=== PATIENT | male | born 1965 | race African-American/Black ===

== ENCOUNTER 2020-08-07 17:10 | Inpatient (IN) | payer BC, OTHER ==
[2020-08-07 18:38] VITALS: BMI 16.2
[2020-08-07] MEDS ORDERED: IBUPROFEN 400 MG TABLET (FP) PO PRN (21:57)
[2020-08-07] MEDS ORDERED: NICOTINE POLACRILEX 2 MG GUM BC PRN (21:57)
[2020-08-07] MEDS ORDERED: ACETAMINOPHEN 325 MG TABLET (FP) PO PRN (21:57)
[2020-08-07] MEDS ORDERED: hydrOXYzine PAMOATE 25 MG CAPSULE (FP) PO PRN (21:57)
[2020-08-07] MEDS ORDERED: MAGNESIUM CITRATE 300 ML BOTTLE PO PRN (21:57)
[2020-08-07] MEDS ORDERED: MAG HYDROX/AL HYDROX/SIMETH 30 ML UNIT-DOSE CUP PO PRN (21:57)
[2020-08-07] MEDS ORDERED: LOPERAMIDE HCL 2 MG CAPSULE PO PRN (21:57)
[2020-08-07] MEDS ORDERED: P-EPHED 60MG/TRIPROLIDI 2.5MG TABLET PO PRN (21:57)
[2020-08-07] MEDS ORDERED: guaiFENesin 200 MG/10 ML 10 ML UNIT-DOSE CUPS PO PRN (21:57)
[2020-08-07] MEDS ORDERED: MAGNESIUM HYDROX 2400MG/30ML ORAL SUSPENSION 30 ML CUP PO PRN (21:57)
[2020-08-07] MEDS: THIAMINE HCL 100 MG TABLET (FP) PO SCH (23:00)
[2020-08-07] MEDS: MELATONIN 5 MG TABLETS PO SCH (23:00)
[2020-08-08] MEDS: PRENATAL VITAMINS W/ FOLIC ACID TABLET (FP) PO SCH (10:33)
[2020-08-08 11:31] LABS: HEMATOCRIT 35.8 % (35.4-49); HEMOGLOBIN 11.8 GM/dL (11.7-16.9); MCH 30.1 pg (25.7-33.7); MCHC 32.9 g/dl (32.0-35.9); MEAN CELL VOLUME 91.5 fl (80-96); MEAN PLT VOLUME 8.2 fl (7.5-11.1); PLATELET COUNT 260 K/MM3 (134-434); RBC 3.91 M/mm3 (4.00-5.60); RDW 13.1 % (11.9-15.9); WHITE BLOOD COUNT 5.7 K/mm3 (4.0-10.0)
[2020-08-08 11:44] LABS: CALCIUM 9.2 mg/dL (8.5-10.1)
[2020-08-08 11:45] LABS: ALBUMIN 3.5 g/dl (3.4-5.0)
[2020-08-08 11:47] LABS: CREATININE 0.9 mg/dL (0.55-1.3)
[2020-08-08 11:49] LABS: BILIRUBIN,TOTAL 0.6 mg/dL (0.2-1); TOT PROT 6.8 g/dl (6.4-8.2)
[2020-08-08 14:59] LABS: PH,URINE 6.5 (5.0-8.0); URINE APPEARANCE CLEAR; URINE BILIRUBIN NEGATIVE (NEGATIVE); URINE COLOR DK YELLOW; URINE GLUCOSE (UA) NEGATIVE (NEGATIVE); URINE KETONE NEGATIVE (NEGATIVE); URINE LEUK ESTERASE NEGATIVE (NEGATIVE); URINE NITRITE NEGATIVE (NEGATIVE); URINE PROTEIN NEGATIVE (NEGATIVE)
[2020-08-08] MEDS: THIAMINE HCL 100 MG TABLET (FP) PO SCH (21:34)
[2020-08-08] MEDS: MELATONIN 5 MG TABLETS PO SCH (21:34)
[2020-08-08] MEDS ORDERED: PT OWN MED DRAWER 7, Y5N ONE (21:44)
[2020-08-08] MEDS ORDERED: risperiDONE 3 MG TABLET PO SCH (22:00)
[2020-08-09] MEDS: PRENATAL VITAMINS W/ FOLIC ACID TABLET (FP) PO SCH (10:05)
[2020-08-09] MEDS: THIAMINE HCL 100 MG TABLET (FP) PO SCH (21:19)
[2020-08-09] MEDS: MELATONIN 5 MG TABLETS PO SCH (21:19)
[2020-08-09] MEDS: risperiDONE 1 MG TABLET PO SCH (21:41)
[2020-08-10] MEDS: PRENATAL VITAMINS W/ FOLIC ACID TABLET (FP) PO SCH (09:50)
[2020-08-10] MEDS: THIAMINE HCL 100 MG TABLET (FP) PO SCH (21:13)
[2020-08-10] MEDS: risperiDONE 1 MG TABLET PO SCH (21:13)
[2020-08-10] MEDS: MELATONIN 5 MG TABLETS PO SCH (21:13)
[2020-08-11 06:10] LABS: SARS-CoV-2 NAA Not Detected (Not Detected)
[2020-08-11] MEDS: PRENATAL VITAMINS W/ FOLIC ACID TABLET (FP) PO SCH (09:43)
[2020-08-11] MEDS: MELATONIN 5 MG TABLETS PO SCH (21:05)
[2020-08-11] MEDS: risperiDONE 1 MG TABLET PO SCH (21:05)
[2020-08-11] MEDS: THIAMINE HCL 100 MG TABLET (FP) PO SCH (21:05)
[2020-08-12] MEDS: PRENATAL VITAMINS W/ FOLIC ACID TABLET (FP) PO SCH (09:54)
[2020-08-12] MEDS ORDERED: PT OWN MED DRAWER 7, Y5N ONE (18:29)
[2020-08-12] MEDS: MELATONIN 5 MG TABLETS PO SCH (21:24)
[2020-08-12] MEDS: THIAMINE HCL 100 MG TABLET (FP) PO SCH (21:24)
[2020-08-12] MEDS: risperiDONE 1 MG TABLET PO SCH (21:46)
[2020-08-13] MEDS: PRENATAL VITAMINS W/ FOLIC ACID TABLET (FP) PO SCH (09:49)
[2020-08-13] MEDS: MELATONIN 5 MG TABLETS PO SCH (21:10)
[2020-08-13] MEDS: risperiDONE 1 MG TABLET PO SCH (21:10)
[2020-08-13] MEDS: THIAMINE HCL 100 MG TABLET (FP) PO SCH (21:10)
[2020-08-14] MEDS: PRENATAL VITAMINS W/ FOLIC ACID TABLET (FP) PO SCH (09:54)
[2020-08-14] MEDS: risperiDONE 1 MG TABLET PO SCH (21:17)
[2020-08-14] MEDS: MELATONIN 5 MG TABLETS PO SCH (21:17)
[2020-08-14] MEDS: THIAMINE HCL 100 MG TABLET (FP) PO SCH (21:17)
[2020-08-15] MEDS: PRENATAL VITAMINS W/ FOLIC ACID TABLET (FP) PO SCH (09:55)
[2020-08-15] MEDS: MELATONIN 5 MG TABLETS PO SCH (21:38)
[2020-08-15] MEDS: THIAMINE HCL 100 MG TABLET (FP) PO SCH (21:38)
[2020-08-15] MEDS: risperiDONE 1 MG TABLET PO SCH (21:38)
[2020-08-16] MEDS: PRENATAL VITAMINS W/ FOLIC ACID TABLET (FP) PO SCH (10:13)
[2020-08-16] MEDS: risperiDONE 1 MG TABLET PO SCH (21:02)
[2020-08-16] MEDS: THIAMINE HCL 100 MG TABLET (FP) PO SCH (21:02)
[2020-08-16] MEDS: MELATONIN 5 MG TABLETS PO SCH (21:02)
[2020-08-17 06:49] VITALS: BP 103/73; PULSE 93; TEMP 97.5
[2020-08-17] MEDS: PRENATAL VITAMINS W/ FOLIC ACID TABLET (FP) PO SCH (10:05)
== END 2020-08-17 11:27 | disposition home or self-care (01) | DRG 772 ==
LOC: YASAS 17:10 → Y3E 21:49
PROVIDERS: ADMIT Allergy & Immunology; ATTEND Allergy & Immunology
PROC: HZ42ZZZ Group Counseling for Substance Abuse Treatment, Cognitive-Behavioral (ICD-10-PCS; principal; 2020-08-07)
DX: F10.20 Alcohol dependence, uncomplicated (principal); F14.20 Cocaine dependence, uncomplicated; F17.210 Nicotine dependence, cigarettes, uncomplicated; F19.282 Other psychoactive substance dependence with psychoactive substance-induced sleep disorder; F19.24 Other psychoactive substance dependence with psychoactive substance-induced mood disorder; F20.9 Schizophrenia, unspecified; J45.909 Unspecified asthma, uncomplicated; Z86.11 Personal history of tuberculosis; Z59.0 Homelessness
CPT/HCPCS: 36415; 71046-TC-FY; 80053; 81003; 85027; 86593; 86780; C9803; J2794; U0003; U0005